=== PATIENT | female | born 1990 | race Hispanic/Latino ===

== ENCOUNTER 2018-05-16 12:28 | Emergency (ER) | payer OTHER ==
[2018-05-16] MEDS ORDERED: Dexamethasone 10 MG/ML VIAL ONE (13:01)
== END 2018-05-16 13:25 | disposition home or self-care (01) ==
LOC: SCSER 12:28
DX: M54.2 Cervicalgia (principal)
CPT/HCPCS: 96372; J1100

== ENCOUNTER 2018-06-26 20:29 | Day surgery (SDC) | payer OTHER ==
[2018-06-26 21:19] LABS: Amnisure Test No Membranes Rupture (No Rupture)
[2018-06-26 21:20] LABS: Amnisure Internal Control QC ACCEPTABLE (ACCEPTABLE)
[2018-06-26 21:24] VITALS: BMI 38.7
[2018-06-26 21:29] VITALS: BP 133/74; TEMP 99
--- NOTE | 2018-06-26 21:51 | PDOC.LDHP ---
Labor and Delivery H&P HPI: Patient of Dr Venegas EGRashad 38 weks 6 days Patient has scheduled IOL Thursday the Patient has full handwritten H&P in chart HPI: 28 yo [id number] at 38.6 weeks with irreg CTX. Unsure if leakage. No gush of fluid, no VB, no headaches. Good FM. ROS: complete ros completed and as per HPI Current gestational age (weeks): 38 (6 days) Grav: 7 Para: 5 OB History Details: EAB1 Abnormal US findings: No Past Medical History: HX "liver failure" s/p lap jas...but now OK Current medications: pre-alex vitamins Previous surgical history: other (cho) Allergies/Adverse Reactions: Allergies Allergy/AdvReac Type Severity Reaction Status Date / Time No Known Allergies Allergy Verified 06/26/18 21:26 Social history: none - Physical Exam Vital signs reviewed and normal: yes General: NAD Heart: RRR Lungs: CTAB Abdomen: gravid FHT: category 1 (good accels, moderate variability, no decekls) [place] contractions every: very rare contractions - Vaginal Exam cm dilated: 3 Effacement: 75% Station: -1 (same exam as in office last week, no gross evidence ROM. Amnisure was collected and nagative) - Assessment Threatened labor at term (latent phase). Amnisure and exam do not support ROM. - Plan Plan: observation in L&D (We will recheck cervix after 1 hour obs. I elected 1 hr rather than 2 as no contractions on monitor. I informed her that if no evidence of labor now, she may still have spont onset of labor prior to thursday' s appoitment. NST goods reassuring)
--- NOTE | 2018-06-26 23:01 | PDOC.EVN ---
Event Note - Event Note Event Note: repeat exam without significant change.
== END 2018-06-26 22:30 | disposition home or self-care (01) ==
LOC: L&D/OP 20:29
PROVIDERS: ATTEND Family Medicine
DX: O47.1 False labor at or after 37 completed weeks of gestation (principal); Z3A.38 38 weeks gestation of pregnancy
CPT/HCPCS: 84112; 99284

== ENCOUNTER 2018-06-28 05:42 | Inpatient (IN) | payer OTHER ==
[2018-06-28 06:09] VITALS: BMI 39.6
[2018-06-28 06:42] LABS: Hemoglobin 11.5 g/dL (12.0-16.0); Mean Corpuscular HGB CONC 35.3 g/dL (32.0-36.0); Mean Corpuscular Hemoglobin 31.4 pg (27.0-31.0); Mean Platelet Volume 7.6 fL (7.4-10.4); Platelet Count 294 thou/uL (130-400); RBC Distribution Width 12.8 % (11.5-14.5); Red Blood Cell (RBC) Count 3.66 mill/uL (4.20-5.40); White Blood Cell (WBC) Count 7.5 thou/uL (4.8-10.8)
[2018-06-28] MEDS ORDERED: Butorphanol Tartrate 1 MG/ML VIAL SLOW IVP PRN (06:44)
[2018-06-28] MEDS ORDERED: Ondansetron HCl/PF 4 MG/2 ML Vial IVP PRN ×2 (06:45→09:02)
[2018-06-28] MEDS ORDERED: Promethazine HCl 25 MG/ML VIAL IM PRN ×2 (06:45→09:02)
[2018-06-28] MEDS ORDERED: Misoprostol 200 MCG TAB PR PRN (06:46)
[2018-06-28] MEDS ORDERED: NS w/ Oxytocin 10 units 500 ML IVPB SCH (07:00)
[2018-06-28] MEDS ORDERED: Methylergonovine 0.2 MG/ML VIAL IM SCH (07:00)
[2018-06-28] MEDS ORDERED: Carboprost 250 MCG/ML AMP IM ONE (07:00)
[2018-06-28] MEDS ORDERED: Lidocaine 1% (PF) 30 ML VIAL NERVE BLCK SCH (07:00)
[2018-06-28] MEDS: Lactated Ringer's 1,000 ML IV SCH ×2 (07:07→08:59)
[2018-06-28 07:20] LABS: Syphilis Antibody Nonreactive (Nonreactive); Syphilis Antibody Index 0.06 S/CO (<1.00 Non-Reactive)
[2018-06-28 07:21] LABS: HBSAg Index 0.13 S/CO (0-0.99); HIV (1/2) Antibody/Antigen Non-Reactive (NonReactive); HIV 1/2 INDEX 0.09 S/CO (<1.00); Hep B Surf Ag Non-Reactive S/CO (NonReactive)
[2018-06-28] MEDS ORDERED: DISCONTINUE ALL PREVIOUS NARCOTICS FS SCH (08:15)
[2018-06-28] MEDS ORDERED: Bupivacaine 0.5% 20 ML, fentaNYL Citrate/PF 400 MCG in Sodium Chloride 0.9% 72 ML EPIDURAL SCH (08:15)
[2018-06-28] MEDS ORDERED: ePHEDrine/0.9% NaCl/PF SYRINGE 50 mg/10 ml SLOW IVP PRN (09:02)
[2018-06-28] MEDS ORDERED: Lactated Ringer's 500 ML IV PRN (09:02)
[2018-06-28] MEDS ORDERED: Acetaminophen 325 MG TAB PO PRN (09:02)
[2018-06-28] MEDS ORDERED: Naloxone HCl 0.4 mg/ml Vial IVP PRN ×2 (09:02)
[2018-06-28] MEDS ORDERED: diphenhydrAMINE 50 MG/ML VIAL IVP PRN (09:02)
[2018-06-28] MEDS ORDERED: Eucerin (Mineral Oil/Petrolatum,White) 30 gm Jar TOP PRN (09:02)
[2018-06-28] MEDS ORDERED: fentaNYL Citrate/PF 400 MCG, Bupivacaine 0.5% 20 ML in Sodium Chloride 0.9% 72 ML EPIDURAL SCH (09:15)
[2018-06-28] MEDS ORDERED: Communication Order-Pharmacy FS SCH (09:15)
[2018-06-28] MEDS ORDERED: Bupivacaine/Epinephrine 0.25% 30 ML VIAL ONE (12:00)
[2018-06-28] MEDS ORDERED: NS / Oxytocin 40 units/1000ml 1,000 ML ONE (14:32)
[2018-06-28] MEDS ORDERED: Lanolin Ointment 7 GM TUBE TOP PRN (20:03)
[2018-06-28] MEDS ORDERED: HYDROcodone/Acetaminophen 5/325 mg Tablet PO PRN ×2 (20:03→21:00)
[2018-06-28] MEDS ORDERED: Bisacodyl 10 MG SUPP PR PRN (20:03)
[2018-06-28] MEDS ORDERED: NS / Oxytocin 40 units/1000ml 1,000 ML IV SCH (20:03)
[2018-06-28] MEDS ORDERED: Preparation H Ointment 28 GM TUBE PR PRN (20:03)
[2018-06-28] MEDS ORDERED: Milk Of Magnesia 30 ML UDCUP PO PRN (20:03)
[2018-06-28] MEDS ORDERED: Ferrous Sulfate 325 MG TAB PO SCH (20:30)
[2018-06-28] MEDS: Docusate Calcium (SURFAK) 240 MG CAP PO SCH (21:11)
[2018-06-28] MEDS: Ibuprofen 800 MG TAB PO SCH (21:14)
[2018-06-28] MEDS: HYDROcodone/Acetaminophen 5/325 mg Tablet PO PRN (21:15)
[2018-06-29] MEDS: Ibuprofen 800 MG TAB PO SCH ×3 (05:02→20:54)
[2018-06-29] MEDS: HYDROcodone/Acetaminophen 5/325 mg Tablet PO PRN ×3 (05:03→19:06)
[2018-06-29] MEDS: Docusate Calcium (SURFAK) 240 MG CAP PO SCH ×2 (08:59→20:54)
[2018-06-29] MEDS: Ferrous Sulfate 325 MG TAB PO SCH ×2 (09:04→09:05)
--- NOTE | 2018-06-29 15:20 | PDOC.PP ---
Post Progress Note Post Day #: 1 Subjective: Having some cramping and tailbone pain, better with meds and ice pack PO intake tolerated: yes Flatus: yes Ambulation: yes Vital Signs (12 hours) Temp Pulse Resp BP 06/29/18 12:33 98.5 F 90 20 136/75 06/29/18 11:21 98.0 F 74 20 06/29/18 08:53 98.0 F 74 20 119/63 06/29/18 07:55 98.0 F 74 20 06/29/18 05:00 98.1 F 73 20 124/78 Weight Weight 238 lb - Physical Examination General: NAD Cardiovascular: no m/r/g, RRR Respiratory: clear to auscultation bilaterally, non-labored breathing Abdominal: + bowel sounds, lochia, no distention, appropriately TTP Psychiatric: A&Ox3, normal affect Result Diagrams: 06/28/18 06:20 Additional Labs: Post Labs Blood Type A POSITIVE 06/28/18 06:20 Hep Bs Antigen Non-Reactive S/CO (NonReactive) 06/28/18 06:20 (1) Vaginal delivery Code(s): O80 - ENCOUNTER FOR FULL-TERM UNCOMPLICATED DELIVERY Status: Acute - Assessment/Plan Routine PP care Pain control D/C home tomorrow
[2018-06-30] MEDS ORDERED: HYDROcodone/Acetaminophen 5/325 mg Tablet ONE (00:21)
[2018-06-30] MEDS: HYDROcodone/Acetaminophen 5/325 mg Tablet PO PRN (00:23)
[2018-06-30] MEDS: Ibuprofen 800 MG TAB PO SCH (05:38)
[2018-06-30 08:01] VITALS: BP 133/82; TEMP 97.8
--- NOTE | 2018-06-30 09:43 | PDOC.PP ---
Post Progress Note Post Day #: 1 Subjective: Doing well, slept well overnight PO intake tolerated: yes Flatus: yes Ambulation: yes Vital Signs (12 hours) Temp Pulse Resp BP 06/30/18 08:00 97.8 F 77 20 133/82 Weight Weight 238 lb - Physical Examination General: NAD Cardiovascular: no m/r/g, RRR Respiratory: clear to auscultation bilaterally, non-labored breathing Abdominal: + bowel sounds, lochia, no distention, appropriately TTP Result Diagrams: 06/28/18 06:20 Additional Labs: Post Labs Blood Type A POSITIVE 06/28/18 06:20 Hep Bs Antigen Non-Reactive S/CO (NonReactive) 06/28/18 06:20 (1) Vaginal delivery Code(s): O80 - ENCOUNTER FOR FULL-TERM UNCOMPLICATED DELIVERY Status: Acute - Assessment/Plan Routine PP care D/C home today
[2018-06-30] MEDS: Ferrous Sulfate 325 MG TAB PO SCH (10:06)
[2018-06-30] MEDS: Docusate Calcium (SURFAK) 240 MG CAP PO SCH (10:16)
== END 2018-06-30 10:50 | disposition home or self-care (01) | DRG 775 ==
LOC: L&D 05:42 → EDSTATUS 14:33 → 3SW 20:07
PROVIDERS: ADMIT Family Medicine; ATTEND Family Medicine
PROC: 10E0XZZ Delivery of Products of Conception, External Approach (ICD-10-PCS; principal; 2018-06-28)
PROC: 3E033VJ Introduction of Other Hormone into Peripheral Vein, Percutaneous Approach (ICD-10-PCS; 2018-06-28)
PROC: 10907ZC Drainage of Amniotic Fluid, Therapeutic from Products of Conception, Via Natural or Artificial Opening (ICD-10-PCS; 2018-06-28)
DX: O69.81X0 Labor and delivery complicated by cord around neck, without compression, not applicable or unspecified (principal); Z3A.39 39 weeks gestation of pregnancy; Z37.0 Single live birth
CPT/HCPCS: 51702; 85027; 86780; 86850; 86900; 86901; 87340; 87389; J2001; J3010; J3490; J7050

== ENCOUNTER 2019-03-03 15:19 | Emergency (ER) | payer OTHER, SELFPAY ==
[2019-03-03 16:15] LABS: Pregnancy Test - Urine (BHCG) Negative (Negative); Pregu Control Background? CLEAR/WHITE (CLR/WHITE); Pregu Control Bar Appear? YES (CONTROL BAR)
[2019-03-03 16:36] LABS: Bilirubin Negative (Negative); Blood, Urine Negative (Negative); Clarity Hazy (Clear); Glucose, Urine (Dipstick) Negative (Negative); Leukocyte Moderate (Negative); Nitrite Negative (Negative); Protein, Urine (Dipstick) Negative (Neg-Trace); Urobilinogen 0.2 mg/dL (0.2-1.0)
[2019-03-03 16:42] LABS: Bacteria/HPF 2+ HPF (None Seen); RBC/HPF None Seen HPF (0-3)
== END 2019-03-03 16:49 | disposition home or self-care (01) ==
LOC: SCSER 15:19
DX: H73.891 Other specified disorders of tympanic membrane, right ear (principal); N39.0 Urinary tract infection, site not specified
CPT/HCPCS: 81003; 81015; 81025; 99282